=== PATIENT | male | born 1960 | race Caucasian/White ===

== ENCOUNTER 2019-10-22 09:17 | Emergency (ER) | payer MEDICARE, MEDICAID ==
--- NOTE | 2019-10-22 10:19 | EDM.PDOC ---
ED HPI GENERAL MEDICAL PROBLEM - General Chief Complaint: Respiratory Problem Stated Complaint: SOB CONGESSION Time Seen by Provider: 10/22/19 10:17 Source of Information: Reports: Patient History Limitations: Reports: No Limitations - History of Present Illness INITIAL COMMENTS - FREE TEXT/NARRATIVE: pt is a paraplegic with chest congestion, He has had a cough. He has had expoure to influ. He did have a fever this am. Onset: Gradual, Other (pt has been sicj since yesterday. ) Duration: Hour(s): Location: Reports: Chest Associated Symptoms: Reports: No Other Symptoms Headache Pain Score (Numeric/FACES): 6 - Related Data Allergies Allergy/AdvReac Type Severity Reaction Status Date / Time ciprofloxacin Allergy Hives Verified 10/22/19 09:47 Sulfa (Sulfonamide Allergy Hives Verified 10/22/19 09:47 Antibiotics) Home Meds: Home Meds Albuterol [Proventil Neb Soln] 1 unit NEB DAILY PRN 01/19/14 [History] Aspirin [Children's Aspirin] 81 mg PO DAILY 01/19/14 [History] Baclofen 20 mg PO QID 01/19/14 [History] Docusate Sodium [Doc-Q-Lace] 100 mg PO DAILY 01/19/14 [History] Fludrocortisone [Florinef] 0.1 mg PO BID 01/19/14 [History] Methenamine 1 gm PO QID 01/19/14 [History] Metoprolol Tartrate [Lopressor] 25 mg PO BID 01/19/14 [History] Midrodine 5 mg PO TID 01/19/14 [History] Potassium Chloride 20 meq PO BID 01/19/14 [History] Sennosides [Senexon] 2 tab PO DAILY 01/19/14 [History] Triamcinolone Acetonide [Nasacort AQ [place]] 1 spray ELSI DAILY PRN 01/19/14 [ History] Ascorbate Calcium [Vitamin C] 500 tab PO TID 02/03/15 [History] Multivitamin with Minerals [Multiple Vitamin] 1 tab PO DAILY 02/03/15 [History] Polyethylene Glycol 3350 [MiraLAX] 17 gm PO ASDIRECTED 02/03/15 [History] Psyllium with Sucrose [Metamucil] 1 pkt PO ASDIRECTED 02/03/15 [History] Past Medical History HEENT History: Reports: Allergic Rhinitis Cardiovascular History: Reports: Afib, Pacemaker Respiratory History: Reports: Pneumonia, Recurrent, Other (See Below) Other Respiratory History: cpap at night Genitourinary History: Reports: Other (See Below) Other Genitourinary History: self catheterizes. Musculoskeletal History: Reports: Fracture Neurological History: Reports: Other (See Below) Other Neuro History: c4-c5 fx with spinal cord injury. - Past Surgical History HEENT Surgical History: Reports: Tonsillectomy Social & Family History - Tobacco Use Smoking Status *Q: Never Smoker - Recreational Drug Use Recreational Drug Use: No ED ROS GENERAL - Review of Systems Review Of Systems: See Below Constitutional: Reports: Chills, Malaise, Other ( cough. He appears to have alot of mucous. ) HEENT: Reports: No Symptoms Respiratory: Reports: Cough, Sputum Cardiovascular: Reports: No Symptoms Endocrine: Reports: No Symptoms GI/Abdominal: Reports: No Symptoms : Reports: No Symptoms Musculoskeletal: Reports: No Symptoms Skin: Reports: No Symptoms ED EXAM, GENERAL - Physical Exam Exam: See Below Free Text/Narrative:: pt arrived with increased sob and a cough. He has had a low grade temp He has had exposure to 2 of the grand children that have influ. Exam Limited By: No Limitations General Appearance: Alert, Mild Distress Ears: Normal TMs Nose: Normal Inspection Throat/Mouth: Normal Inspection Head: Atraumatic Neck: Normal Inspection Respiratory/Chest: No Respiratory Distress, Other (pt does have some rhonchi in the upper lung phan. ) Cardiovascular: Regular Rate, Rhythm GI/Abdominal: Soft, Non-Tender Neurological: Other (pt is a paraplegic) Psychiatric: Normal Affect Course - Vital Signs Last Recorded V/S: Last Vital Signs Temp 36.6 C 10/22/19 09:45 Pulse 91 10/22/19 11:25 Resp 16 10/22/19 11:25 BP 137/80 10/22/19 11:25 Pulse Ox 97 10/22/19 11:25 - Orders/Labs/Meds Labs: Laboratory Tests 10/22/19 10/22/19 Range/Units 10:43 10:43 WBC 5.0 (4.5-11.0) K/uL RBC 4.35 (4.30-5.90) M/uL Hgb 12.7 D (12.0-15.0) g/dL Hct 38.9 L (40.0-54.0) % MCV 89 (80-98) fL MCH 29 (27-31) pg MCHC 33 (32-36) % Plt Count 158 (150-400) K/uL Neut % (Auto) 81 H (36-66) % Lymph % (Auto) 5 L (24-44) % [place] % (Auto) 12 H (2-6) % Eos % (Auto) 1 L (2-4) % Baso % (Auto) 1 (0-1) % Sodium 138 L (140-148) mmol/L Potassium 3.4 L (3.6-5.2) mmol/L Chloride 103 (100-108) mmol/L Carbon Dioxide 24 (21-32) mmol/L Anion Gap 14.4 H (5.0-14.0) mmol/L BUN 20 H (7-18) mg/dL Creatinine 0.6 L (0.8-1.3) mg/dL Est Cr Clr Drug Dosing 145.50 mL/min Estimated GFR (MDRD) > 60 (>60) Glucose 94 (74-106) mg/dL Calcium 8.3 L (8.5-10.1) mg/dL Total Bilirubin 0.5 (0.2-1.0) mg/dL AST 42 H (15-37) U/L ALT 52 (12-78) U/L Alkaline Phosphatase 130 H (46-116) U/L Total Protein 7.2 (6.4-8.2) g/dL Albumin 3.6 (3.4-5.0) g/dL Globulin 3.6 H (2.3-3.5) g/dL Albumin/Globulin Ratio 1.0 L (1.2-2.2) - Re-Assessments/Exams Free Text/Narrative Re-Assessment/Exam: 10/22/19 12:38 pt has a wbc of 5000. His influ was neg however he has had exposure in the last few days to 2 grand children. --who had influ. chest xray was normal. 10/22/19 12:39 Departure - Departure Time of Disposition: 12:18 Disposition: Home, Self-Care 01 Condition: Fair Clinical Impression: Bronchitis - Discharge Information Instructions: Acute Bronchitis, Adult Referrals: Edwni Christianson MD [Primary Care Provider] - Forms: ED Department Discharge Care Plan Goals: push fluids, use nebs q4h at home, cool mist humidifier, tamaflu. --75 bid for 5 days, zithromax, 500mg no and 250 daily for 5 days. rtc if increased problems. Sepsis Event Note - Evaluation Sepsis Screening Result: No Definite Risk - Focused Exam Vital Signs: Vital Signs Temp Pulse Resp BP Pulse Ox 10/22/19 11:25 91 16 137/80 97 10/22/19 09:45 36.6 C 92 18 126/74 98 10/22/19 09:31 36.6 C 92 18 126/74 98 Date Exam was Performed: 10/22/19 Time Exam was Performed: 12:35
--- NOTE | 2019-10-22 10:56 | CRLCR ---
INDICATION: Shortness of breath. Cough. TECHNIQUE: AP chest. COMPARISON: None. FINDINGS: Clear lungs. Attenuation of the pulmonary vascularity in the upper lobes may reflect emphysematous type change. Overall heart size is within normal limits accounting for technique. Left-sided dual chamber pacemaker with its lead tips in the right atrium and right ventricle. IMPRESSION : No acute cardiopulmonary process identified. Dictated by Andreas Mitchell MD @ Oct 22 2019 10:53AM Signed by Dr. Andreas Mitchell @ Oct 22 2019 10:55AM
[2019-10-22 11:26] VITALS: BP 137/80; PULSE 91
== END 2019-10-22 12:37 | disposition home or self-care (01) ==
LOC: JP.ED 09:17
DX: J40 Bronchitis, not specified as acute or chronic (principal); Z88.2 Allergy status to sulfonamides; Z88.1 Allergy status to other antibiotic agents; Z79.82 Long term (current) use of aspirin; Z79.899 Other long term (current) drug therapy
CPT/HCPCS: 36415; 71045; 80053; 85025; 87804; 87804-59; 99283; 99285-25

== ENCOUNTER 2023-06-03 11:56 | Emergency (ER) | payer MEDICARE, MEDICAID ==
[2023-06-03 13:18] VITALS: PULSE 66
[2023-06-03] MEDS ORDERED: Ketorolac 30 MG/ML SDV IM ONE (15:08)
[2023-06-03] MEDS ORDERED: hydrOXYzine HCL 100 MG/2 ML SDV IM ONE (15:09)
[2023-06-03 15:45] VITALS: BP 160/108
== END 2023-06-03 16:19 | disposition home or self-care (01) ==
LOC: JP.ED 11:56
DX: M54.2 Cervicalgia (principal); I48.91 Unspecified atrial fibrillation; Z79.82 Long term (current) use of aspirin; Z88.1 Allergy status to other antibiotic agents; Z88.2 Allergy status to sulfonamides; Z79.899 Other long term (current) drug therapy
CPT/HCPCS: 96372; 99283; J1885; J3410; 99284

== ENCOUNTER 2025-05-23 11:23 | Emergency (ER) | payer MEDICARE, MEDICAID ==
[2025-05-23] MEDS: Ketorolac 30 MG/ML SDV IM ONE (15:15)
[2025-05-23 15:18] LABS: APPEARANCE,URINE CLEAR (CLEAR); GLUCOSE,URINE NEGATIVE (NEGATIVE); OCCULT BLOOD,URINE NEGATIVE (NEGATIVE)
[2025-05-23] MEDS: Ondansetron 4 MG Tab.DIS PO ONE (15:19)
[2025-05-23 15:24] LABS: SQUAMOUS EPITHELIAL CELLS,UR FEW /HPF
[2025-05-23 15:25] LABS: UROTHELIAL CELLS,URINE NOT SEEN /HPF
[2025-05-23 15:36] VITALS: BP 186/131; PULSE 64
== END 2025-05-23 16:08 | disposition home or self-care (01) ==
LOC: JP.ED 11:23
DX: G44.86 Cervicogenic headache (principal); G82.50 Quadriplegia, unspecified; Z88.1 Allergy status to other antibiotic agents; Z88.2 Allergy status to sulfonamides; Z79.51 Long term (current) use of inhaled steroids; Z79.82 Long term (current) use of aspirin; Z79.899 Other long term (current) drug therapy
CPT/HCPCS: 70450; 71045; 81001; 96372; 99284; J1885; Q0162; 99283

== ENCOUNTER 2025-05-25 09:46 | Emergency (ER) | payer MEDICARE, MEDICAID ==
[2025-05-25 11:49] LABS: BASE EXCESS VENOUS -2.5 mm/L; BICARBONATE,VENOUS 19.0 mmol/L; O2 SATURATION VENOUS 97.8; OXYHEMOGLOBIN 94.8 %; PCO2 VENOUS 25.6 mm/Hg; PH,VENOUS 7.484 (7.350-7.450); PO2 VENOUS 85.8 mm/Hg; TOTAL HEMOGLOBIN 14.9 g/dL (13.5-18.0)
[2025-05-25 11:49] LABS: BASOPHILS ABSOLUTE AUTO 0.05 K/uL (0.00-0.10); BASOPHILS PERCENT AUTO 1.0 % (0.1-1.3); EOSINOPHILS ABSOLUTE AUTO 0.16 K/uL (0.00-0.40); EOSINOPHILS PERCENT AUTO 3.2 % (0.0-5.4); IMMATURE GRAN PERCENT AUTO 0.2 % (0.0-0.7); LYMPHOCYTES ABSOLUTE AUTO 0.96 K/uL (0.8-3.3); LYMPHOCYTES PERCENT AUTO 19.3 % (11.4-47.7); MONOCYTES ABSOLUTE AUTO 0.38 K/uL (0.20-0.90); MONOCYTES PERCENT AUTO 7.6 % (3.3-12.6); NEUTROPHILS ABSOLUTE AUTO 3.42 K/uL (1.0-7.6); NEUTROPHILS PERCENT AUTO 68.7 % (40.0-78.1); PLATELET COUNT,PLT 188 K/uL (130-375); RED BLOOD CELL COUNT 4.61 M/uL (4.14-5.76); WHITE BLOOD CELL COUNT,WBC 5.0 K/uL (3.2-11.0)
[2025-05-25 11:58] LABS: IMMATURE GRAN ABSOLUTE AUTO 0.01 K/uL (0.00-0.23)
[2025-05-25 11:59] LABS: APPEARANCE,URINE CLEAR (CLEAR); GLUCOSE,URINE NEGATIVE (NEGATIVE); OCCULT BLOOD,URINE NEGATIVE (NEGATIVE)
[2025-05-25 12:17] LABS: A/G RATIO 1.1 (1.2-2.2); ALANINE AMINOTRANSFERASE,ALT 45 U/L (12-78); ASPARTATE AMNIOTRANSFERASE,AST 28 U/L (15-37); BILIRUBIN TOTAL 0.7 mg/dL (0.2-1.0); BLOOD UREA NITROGEN,BUN 24 mg/dL (7-18); CARBON DIOXIDE,CO2 22 mmol/L (21-32); CHLORIDE,CL 100 mmol/L (100-108); CREATININE 0.6 mg/dL (0.8-1.3); EST CRCL DRUG DOSING (CG) 136.52 mL/min; ESTIMATED GFR 108 mL/min (>60); GLUCOSE RANDOM 93 mg/dL (74-106); POTASSIUM,K 3.3 mmol/L (3.6-5.2); PRO B-TYPE NATRIUR PEPT,BNPPRO 229 pg/mL (5-125); PROTEIN TOTAL,TP 7.4 g/dL (6.4-8.2); SODIUM,NA 133 mmol/L (140-148)
[2025-05-25 12:17] LABS: SQUAMOUS EPITHELIAL CELLS,UR RARE /HPF; UROTHELIAL CELLS,URINE NOT SEEN /HPF
[2025-05-25 12:33] LABS: TROPONIN I HIGH SENSITIVITY 13.0 pg/mL (<=60.3)
[2025-05-25 12:57] VITALS: BP 119/88; PULSE 67
[2025-05-25] MEDS: Sodium Chloride 0.9% 10 ML Syringe FLUSH PRN (14:07)
[2025-05-25] MEDS: Iopamidol 755 Mg/ML 100 ML Bottle IV SCH (14:07)
== END 2025-05-25 15:38 | disposition home or self-care (01) ==
LOC: JP.ED 09:46
DX: R06.4 Hyperventilation (principal); Z88.1 Allergy status to other antibiotic agents; Z88.2 Allergy status to sulfonamides; Z79.51 Long term (current) use of inhaled steroids; Z79.82 Long term (current) use of aspirin; Z79.899 Other long term (current) drug therapy
CPT/HCPCS: 36415; 71275; 80053; 81001; 82803; 83605; 83735; 83880; 84484; 85025; 85379; 87426; 99285; Q9967; 99284